=== PATIENT | male | born 1955 | race Caucasian/White ===

== ENCOUNTER 2016-08-27 02:24 | Emergency (ER) | payer OTHER, MEDICARE ==
[2016-08-27] MEDS ORDERED: SODIUM CHLORIDE 0.9% 1,000 ML ONE (04:46)
[2016-08-27] MEDS ORDERED: CEFTRIAXONE 1 GM VIAL ONE (04:52)
[2016-08-27] MEDS ORDERED: SODIUM CHLORIDE 0.9% 100 ML IV ONE (04:52)
== END 2016-08-27 06:05 | disposition home or self-care (01) ==
LOC: ER 02:24
DX: J15.9 Unspecified bacterial pneumonia (principal)
CPT/HCPCS: 36415; 71010; 80053; 82553; 83605; 83880; 84484; 85025; 87040; 87804; 93005; 96361; 96365